=== PATIENT | male | born 1990 | race Caucasian/White ===

== ENCOUNTER 2019-07-09 23:19 | Emergency (ER) | payer MEDICAID ==
[~2019-07-09] VITALS: Ht 182.9 cm; Wt 70.3 kg
[2019-07-09 23:35] VITALS: BP 123/78
--- NOTE | 2019-07-09 23:40 | NUR ---
PT AMBULATED TO ER BED 09
[2019-07-09] MEDS ORDERED: ONDANSETRON 4 MG/2 ML VIAL IVP ONE (23:45)
[2019-07-09] MEDS ORDERED: NACL 0.9% 500 ML IV ONE (23:45)
--- NOTE | 2019-07-09 23:49 | NUR ---
DR. LAZCANO AT BEDSIDE.
[2019-07-09] MEDS ORDERED: MORPHINE SULFATE 2 MG/ML SYR IVP ONE (23:55)
[2019-07-09] MEDS ORDERED: PANTOPRAZOLE 40 MG INJ VIAL IVP ONE (23:55)
[2019-07-10 00:17] LABS: BASOPHILS % (AUTO) 0.5 % (0.0-2.0); EOSINOPHILS # (AUTO) 0.1 K/uL (0-0.4); EOSINOPHILS % (AUTO) 1.5 % (0.0-4.0); HEMATOCRIT 45.7 % (36-52); HEMOGLOBIN 15.6 g/dL (12.0-18.0); LYMPHOCYTES # (AUTO) 1.7 K/uL (2.0-11.5); LYMPHOCYTES % (AUTO) 21.8 % (20.5-51.1); MEAN CORPUSCULAR HEMOGLOBIN 34 pg (27-31); MEAN CORPUSCULAR HGB CONC 34 g/dL (33-37); MEAN CORPUSCULAR VOLUME 98.9 fL (80-94); MONOCYTES # (AUTO) 0.6 K/uL (0.8-1.0); MONOCYTES % (AUTO) 7.9 % (1.7-9.3); NEUTROPHILS # (AUTO) 5.4 K/uL (1.8-7.7); NEUTROPHILS % (AUTO) 68.3 % (42.2-75.2); PLATELET COUNT (AUTO) 248 K/uL (140-450); RED BLOOD CELL COUNT(AUTO) 4.62 MIL/uL (4.20-6.10); RED CELL DISTRIBUTION WIDTH 11.8 % (11.6-13.7); WHITE BLOOD COUNT (AUTO) 7.9 K/uL (4.8-10.8)
[2019-07-10 00:33] LABS: ALBUMIN 4.8 g/dL (3.4-5.0); ANION GAP 12.2 (8-16); CREATININE 1.2 mg/dL (0.6-1.3); POTASSIUM 4.2 mmol/L (3.5-5.1); TOTAL BILIRUBIN 0.9 mg/dL (0.0-1.0)
--- NOTE | 2019-07-10 00:38 | NUR ---
29 Y/M PRESENTS TO ED FOR RUQ ABD PAIN X 3 WEEKS. PT WAS SEEN IN [place] X 3 WEEKS AGO AND DX WITH SBO, PT WAS GIVEN MAGNESIUM AND TORADOL AND INJECTION AND REPORTED SLIGHT RELIEF. PT REPORTS PAIN HAS RETURNED AND REPORTS CONTIPATION X1.5 DAYS. PT ALSO REPORTS VOMITING AND NAUSEA, EXCESSIVE BELCHING AND BLOATING. PT A &O X 4. RR EVEN AND UNLABORED. ABD SOFT, NONTISTENDED AND TENDER TO TOUCH. BS ACTIVE X 4. PMH- H PYLORI ALLERGIES- IBURPOFEN
[2019-07-10 00:49] LABS: BARBITURATE, URINE NEGATIVE ng/ml (NEG <=200); BENZODIAZEPINE, URINE NEGATIVE ng/mL (NEG <=200); CANNABINOID, URINE POSITIVE ng/mL (NEG <=50); COCAINE, URINE NEGATIVE ng/mL (NEG <=300); OPIATE, URINE NEGATIVE ng/mL (NEG <=2000); PHENCYCLIDINE SCREEN,URINE NEGATIVE ng/mL (NEG <=25)
--- NOTE | 2019-07-10 00:55 | NUR ---
PT TRANSPORTED TO CT VIA W/C.
[2019-07-10 01:06] LABS: ACETAMINOPHEN < 0.5 ug/ml (10-30); SALICYLATE < 2.8 mg/dL (2.8-20.0)
--- NOTE | 2019-07-10 01:10 | NUR ---
PT BACK FROM CT VIA W/C.
--- NOTE | 2019-07-10 01:56 | NUR ---
Patient discharged with v/s stable. Written and verbal after care instructions given and explained. Patient alert, oriented and verbalized understanding of instructions. Ambulatory with steady gait. All questions addressed prior to discharge. ID band removed. Patient advised to follow up with PMD. Rx of TRAMADOL AND ZOFRAN given. Patient educated on indication of medication including possible reaction and side effects. Opportunity to ask questions provided and answered.
[2019-07-10 02:12] VITALS: BP 130/86
--- NOTE | 2019-07-10 15:43 | NUR ---
LATE ENTRY- 0.9% NORMAL SALINE IV FLUIDS DISCONTINUED AT 0156.
== END 2019-07-10 01:56 | disposition home or self-care (01) ==
LOC: MED 23:19
DX: R10.11 Right upper quadrant pain (principal); F12.10 Cannabis abuse, uncomplicated; R11.2 Nausea with vomiting, unspecified; J45.909 Unspecified asthma, uncomplicated; Z88.8 Allergy status to other drugs, medicaments and biological substances
CPT/HCPCS: 36415; 74176; 80053; 80305; 83690; 85025; 87040; 96361; 96374; 96375; 99284; C9113; G0480; G0482; J2270; J2405; J7030